=== PATIENT | female | born 1960 ===

== ENCOUNTER 2018-09-02 14:41 | Emergency (ER) | payer MEDICAID ==
[2018-09-02 14:41] VITALS: BMI 35.1
[2018-09-02 14:51] VITALS: RESP 20
[2018-09-02 15:49] LABS: SQUAMOUS EPITHIAL 6 /hpf (0-5); URINE BACTERIA RARE (<OCC); URINE BILIRUBIN 1+ (NEGATIVE); URINE BLOOD NEGATIVE (NEGATIVE); URINE CLARITY Hazy (Clear); URINE COLOR Amber (YELLOW); URINE GLUCOSE (UA) NORMAL (Normal); URINE LEUKOCYTE ESTERASE 2+ Leu/uL (Negative); URINE PROTEIN 2+ mg/dL (NEGATIVE)
[2018-09-02 16:24] VITALS: BP 110/72; PULSE 102; O2SAT 96
--- NOTE | 2018-09-02 16:53 | C.PDOC ---
History Of Present Illness 57 year old female presents to the ED for evaluation of lower back pain associated with headache for the past 3-4 days. Patient denies decrease in PO intake, fever, chills, nausea, vomiting, diarrhea, incontinence, extremity numbness/weakness, or recent trauma/falls. Time Seen by Provider: 09/02/18 14:50 Chief Complaint (Nursing): Back Pain History Per: Patient History/Exam Limitations: no limitations Onset/Duration Of Symptoms: Days (3-4) Current Symptoms Are (Timing): Still Present Quality Of Discomfort: "Pain" Previous Symptoms: Back Pain Associated Symptoms: denies: Incontinence, New Weakness, New Numbness Additional History Per: Patient Past Medical History Reviewed: Historical Data, Nursing Documentation, Vital Signs Vital Signs: Last Vital Signs Temp 98.7 F 09/02/18 16:24 Pulse 102 H 09/02/18 16:24 Resp 20 09/02/18 16:24 BP 110/72 09/02/18 16:24 Pulse Ox 96 09/02/18 16:24 - Medical History PMH: HTN, Hypercholesterolemia, Hyperlipidemia Surgical History: Cholecystectomy Family History: States: CAD - Social History Hx Tobacco Use: No Hx Alcohol Use: No Hx Substance Use: No - Immunization History Hx Tetanus Toxoid Vaccination: No Hx Influenza Vaccination: No Hx Pneumococcal Vaccination: No Review Of Systems Constitutional: Negative for: Fever, Chills Gastrointestinal: Negative for: Nausea, Vomiting, Diarrhea Genitourinary: Negative for: Incontinence Musculoskeletal: Positive for: Back Pain (lower) Neurological: Positive for: Headache. Negative for: Weakness, Numbness Physical Exam - Physical Exam Appears: Non-toxic, No Acute Distress Skin: Normal Color, Warm, Dry Head: Atraumatic, Normacephalic Eye(s): bilateral: Normal Inspection Oral Mucosa: Moist Neck: Supple Chest: Symmetrical, No Deformity, No Tenderness Cardiovascular: Rhythm Regular Respiratory: Normal Breath Sounds Gastrointestinal/Abdominal: Soft, Tenderness (mild, suprapubic ), No Guarding, No Rebound Back: No CVA Tenderness, No Vertebral Tenderness, No Paraspinal Tenderness Extremity: Normal ROM, Capillary Refill (less than 2 seconds ) Neurological/Psych: Oriented x3, Normal Speech, Normal Cognition, Normal Sensation Gait: Steady ED Course And Treatment O2 Sat by Pulse Oximetry: 96 (on RA) Pulse Ox Interpretation: Normal Progress Note: Bloodwork, urinalysis, Flu swab ordered and reviewed. Patient is negative for flu A/B. Patient's urinalysis results are significant for urinary tract infection. Tylenol PO and Avelox PO given. On reassessment, patient is resting comfortably, showing no signs of distress and is stable for discharge. Patient is advised to follow up with her PMD within 1-2 days for further evaluation. She is advised to return to the ED if symptoms persist or worsen. Disposition - Disposition Referrals: Shaik Lopes MD [Staff Provider] - Disposition: HOME/ ROUTINE Disposition Time: 16:50 Condition: STABLE Additional Instructions: Follow up with your PMD within 1-2 days. Return to ED if feel worse. Prescriptions: levoFLOXacin [Levaquin] 750 mg PO DAILY #10 tab Ibuprofen [Motrin Tab] 600 mg PO Q8 #30 tab Instructions: Urinary Tract Infections in Adults Forms: [facility] (Azerbaijani) Print Language: [place] - Clinical Impression Clinical Impression: UTI (urinary tract infection) - PA / [employer]ICLE PRINTER / Resident Statement MD/DO has reviewed & agrees with the documentation as recorded. - Scribe Statement The provider has reviewed the documentation as recorded by the Scribe (Stephania Carrillo) All medical record entries made by the Scribe were at my direction and per sonally dictated by me. I have reviewed the chart and agree that the record accurately reflects my personal performance of the history, physical exam, medical decision making, and the department course for this patient. I have also personally directed, reviewed, and agree with the discharge instructions and disposition.
[2018-09-02 16:55] VITALS: TEMP 98.9
== END 2018-09-02 17:04 | disposition home or self-care (01) ==
LOC: C.ER 14:41
DX: N39.0 Urinary tract infection, site not specified (principal)